=== PATIENT | female | born 1985 | race American Indian/Alaskan Native ===

== ENCOUNTER 2018-01-13 22:14 | Inpatient (IN) | payer OTHER ==
[2018-01-13 22:22] VITALS: O2SAT 100
--- NOTE | 2018-01-13 23:17 | ED PDOC ---
HPI: Psych/Substance Abuse Time Seen by Provider: 01/13/18 22:25 Chief Complaint (Nursing): Psychiatric Evaluation Chief Complaint (Provider): Psychiatric Evaluation ED Caveat: Acuity of Condition History Per: EMS History/Exam Limitations: other (patient internally preoccupied) Onset/Duration Of Symptoms: Hrs Current Symptoms Are (Timing): Still Present Associated Symptoms: Depression, Suicidal Thoughts Additional Complaint(s): Lilly Freire is a 32 year old female with a past medical history of depression, who was brought to the ED by EMS for psychiatric evaluation. Patient admits to suicidal ideation and appears delusional and religiously preoccupied upon arrival to the ED. Due to patient's clinical presentation, no further history was obtainable. PMD: none provided Past Medical History Reviewed: Historical Data, Nursing Documentation, Vital Signs, Unable To Obtain Vital Signs: Last Vital Signs Temp 98.6 F 01/13/18 22:18 Pulse 96 H 01/13/18 22:18 Resp 18 01/13/18 22:18 BP 126/74 01/13/18 22:18 Pulse Ox 100 01/13/18 22:18 - Medical History PMH: Depression - Family History Family History: States: No Known Family Hx - Allergies Allergies/Adverse Reactions: Allergies Allergy/AdvReac Type Severity Reaction Status Date / Time acetaminophen [From Tylenol] Allergy SWELLING Verified 01/14/18 04:49 crab Allergy RASH Verified 01/14/18 05:07 ibuprofen [From Motrin] Allergy SWELLING Verified 01/14/18 04:49 unsure Allergy RASH Uncoded 01/13/18 22:18 Review of Systems ROS Statement: Except As Marked, All Systems Reviewed And Found Negative Review Of Systems: ROS cannot be obtained secondary to pt's inabilty to answer questions. Physical Exam - Reviewed Nursing Documentation Reviewed: Yes Vital Signs Reviewed: Yes - Physical Exam Appears: Positive for: Non-toxic, No Acute Distress (but patient appears internally preoccupied) Head Exam: Positive for: ATRAUMATIC, NORMAL INSPECTION, NORMOCEPHALIC Skin: Positive for: Normal Color, Warm, DRY Eye Exam: Positive for: EOMI, Normal appearance, PERRL ENT: Positive for: Normal ENT Inspection Neck: Positive for: Normal, Painless ROM Cardiovascular/Chest: Positive for: Regular Rate, Rhythm. Negative for: Murmur Respiratory: Positive for: Normal Breath Sounds. Negative for: Respiratory Distress Gastrointestinal/Abdominal: Positive for: Normal Exam, Soft. Negative for: Tenderness Back: Positive for: Normal Inspection. Negative for: L CVA Tenderness, R CVA Tenderness, Vertebral Tenderness Extremity: Positive for: Normal ROM. Negative for: Deformity, Swelling Neurologic/Psych: Positive for: Alert, Oriented. Negative for: Motor/Sensory Deficits - Laboratory Results Result Diagrams: 01/14/18 02:09 01/14/18 02:09 - ECG O2 Sat by Pulse Oximetry: 100 (RA) Pulse Ox Interpretation: Normal Medical Decision Making Medical Decision Making: Time: 22: 26 Impression: 32 year old female brought in for crisis evaluation, suicidal ideation, and delusional thoughts Plan: --Urine Drug Screen --Crisis Evaluation --ED Urine --ED Urine Dipstick --1:1 Observation --Urinalysis 1:32 Patient was evaluated by crisis and will be admitted for further treatment of schizophrenia. Upon provider evaluation, she is medically stable and clear for psychiatric admission. Scribe Attestation: Documented by Carmelina Morris, acting as a scribe for Beau Harman MD. Provider Scribe Attestation: All medical record entries made by the Scribe were at my direction and personally dictated by me. I have reviewed the chart and agree that the record accurately reflects my personal performance of the history, physical exam, medical decision making, and the department course for this patient. I have also personally directed, reviewed, and agree with the discharge instructions and disposition. Disposition - Clinical Impression Clinical Impression: Schizophrenia - Patient ED Disposition Is Patient to be Admitted: Yes - Disposition Disposition Time: 01:35 Condition: STABLE - Pt Status Changed To: Hospital Disposition Of: Inpatient - Admit Certification Admit to Inpatient:: After my assessment, the patient will require hospitalization for at least two midnights. This is because of the severity of symptoms shown, intensity of services needed, and/or the medical risk in this patient being treated as an outpatient. - POA Present On Arrival: None
[2018-01-14 00:42] LABS: SQUAMOUS EPITHIAL 1 /hpf (0-5); URINE BACTERIA MOD (<OCC); URINE BILIRUBIN NEGATIVE (NEGATIVE); URINE BLOOD NEGATIVE (NEGATIVE); URINE CLARITY SLIGHTY-CLOUDY (Clear); URINE COLOR YELLOW (YELLOW); URINE GLUCOSE (UA) NEG (Normal); URINE HYALINE CAST 0-2 /hpf (0-2); URINE LEUKOCYTE ESTERASE NEG Leu/uL (Negative); URINE PROTEIN 100 mg/dL (NEGATIVE)
[2018-01-14 01:07] LABS: BARBITURATES, UR NEGATIVE (NEGATIVE); BENZODIAZEPINES, UR NEGATIVE (NEGATIVE); OPIATES, UR NEGATIVE (NEGATIVE); PHENCYCLIDINE, UR NEGATIVE (NEGATIVE)
[2018-01-14 02:19] LABS: EOS % 0.3 % (0.0-4.0); HEMOGLOBIN 10.9 g/dL (12.0-16.0); LYMPH # 1.3 K/uL (1.0-4.3); LYMPH % 33.2 % (20.0-40.0); MEAN CELL VOLUME 82.8 fl (81.0-99.0); MEAN CORPUSCULAR HEMOGLOBIN 27.6 pg (27.0-31.0); MEAN CORPUSCULAR HGB CONC 33.3 g/dL (33.0-37.0); MEAN PLATELET VOLUME 7.3 fl (7.2-11.7); MONO # 0.3 K/uL (0.0-0.8); MONO % 8.7 % (0.0-10.0); NEUT # 2.3 K/uL (1.8-7.0); NEUT % 56.8 % (50.0-75.0); RBC 3.95 Mil/uL (3.80-5.20); RED CELL DISTRIBUTION WIDTH 13.6 % (11.5-14.5)
[2018-01-14 02:31] LABS: ALB/GLOB RATIO 1.3 (1.0-2.1); ALBUMIN 4.2 g/dL (3.5-5.0); ALT/SGPT 36 U/L (9-52); AST/SGOT 80 U/L (14-36); BLOOD UREA NITROGEN 13 mg/dl (7-17); CALCIUM 9.5 mg/dL (8.4-10.2); GFR NON-AFRICAN AMERICAN > 60
[2018-01-14] MEDS ORDERED: Alum-Mag Hydrox-Simethicone Susp (30 mL) PO PRN (04:16)
[2018-01-14] MEDS ORDERED: DiphenhydrAMINE 50 mg/ml Inj IM PRN (04:16)
[2018-01-14] MEDS ORDERED: Magnesium Hydroxide Susp 30 ml UD PO PRN (04:16)
--- NOTE | 2018-01-14 04:36 | PCM.BM ---
Treatment Plan Problems - Problems identified on initial assessmt delusions Date Initiated: 01/14/18 Time Initiated: 04:36 Assessment reference: NA Status: Active Altered sleep patterns Date Initiated: 01/14/18 (t) Time Initiated: 04:41 Assessment reference: NA Status: Active Treatment assets and liabiliti Patient Assests: ADL independent, physically healthy, good support system, negotiates basic needs Patient Liabilities: substance abuse - Milieu Protocol Maintain good personal hygiene: daily Encourage regular showers, daily Remind patient to perform daily oral care, other Assist patient to perform ADL's (prn) Conduct patient checks and document Observation sheet: Q15 minutes Maintain personal safety: every shift Educate patient to report safety concerns to staff, every shift Monitor environment for contraband/sharps Medication safety: Monitor for expected outcome, potential side effects: every shift, Assess barriers to learning: every shift, Assess readiness for medication education: every shift
--- NOTE | 2018-01-14 06:11 | CARD ---
APPROVED REPORT Date of service: 01/14/2018 EKG Measurement Heart [id number] <Conclusion> Normal sinus rhythm Normal ECG
--- NOTE | 2018-01-14 09:06 | RAD ---
Date of service: 01/14/2018 HISTORY: admit COMPARISON: No prior. FINDINGS: LUNGS: No active pulmonary disease. PLEURA: No significant pleural effusion identified, no pneumothorax apparent. CARDIOVASCULAR: Normal. OSSEOUS STRUCTURES: No significant abnormalities. VISUALIZED UPPER ABDOMEN: Normal. OTHER FINDINGS: None. IMPRESSION: No active disease.
[2018-01-14 11:38] LABS: T4 7.44 ug/dl (5.5-11.0)
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
--- NOTE | 2018-01-14 16:31 | PCM.BM ---
Treatment Plan Problems - Problems identified on initial assessmt delusions Date Initiated: 01/14/18 Time Initiated: 04:36 Assessment reference: NA Status: Active Altered sleep patterns Date Initiated: 01/14/18 (t) Time Initiated: 04:41 Assessment reference: NA Status: Active Anger, Agression and Violent Behaviors Date Initiated: 01/14/18 Time Initiated: 16:31 Assessment reference: NA Status: Active Treatment assets and liabiliti Patient Assests: ADL independent, physically healthy, good support system, negotiates basic needs Patient Liabilities: substance abuse - Milieu Protocol Maintain good personal hygiene: daily Encourage regular showers, daily Remind patient to perform daily oral care, other Assist patient to perform ADL's (prn) Conduct patient checks and document Observation sheet: Q15 minutes Maintain personal safety: every shift Educate patient to report safety concerns to staff, every shift Monitor environment for contraband/sharps Medication safety: Monitor for expected outcome, potential side effects: every shift, Assess barriers to learning: every shift, Assess readiness for medication education: every shift Milieu Narrative: start haldol 5mg tid continue 1:1 precautions for safety of self and others pt at current mental status floridly psychotic having homicidal command hallucinations , no insight into illness refusing medications physically aggressive towards other patients pt needs to be screened for involuntary admission as she is currently danger to self and others and needs higher level of care Discharge/Continuing Care - Treatment Team Participation Patient/Family/SO Statement: start haldol 5mg tid continue 1:1 precautions for safety of self and others pt at current mental status floridly psychotic having homicidal command hallucinations , no insight into illness refusing medications physically aggressive towards other patients pt needs to be screened for involuntary admission as she is currently danger to self and others and needs higher level of care
--- NOTE | 2018-01-14 23:05 | CP.PCM.CON ---
History of Present Illness - History of Present Illness History of Present Illness: Attending: Dr Bolton Reason for consult: Medical matters The Patient was seen and examined in the Psych Unit HPI: The patient is answering in monosyllable. The history is obtained from the medical staff and after review of the medical records. this is a 32 years old female non compliant with medication, has hx of Schizophrenia. She was brought to the ED because of suicidal ideation, audible hallucination and becoming aggressive. she refers mild dizziness, no headache, nausea, vomits, chest pain nor coughing. PMH: Schizophrenia; Depression PSH: No Surgical hx SH: Unknown if ever smoked; No illegal drug use; No Alcohol FH: States: No known family hx Allergies: Acetaminophen, Ibuprofen Crabs Medication: Denies Review of Systems - Constitutional Constitutional: absent: Chills, Fever - EENT Eyes: absent: Blurred Vision, Diplopia, Floaters, Requires Corrective Lenses Ears: absent: Decreased Hearing, Tinnitus Nose/Mouth/Throat: absent: Epistaxis, Nasal Congestion - Cardiovascular Cardiovascular: absent: Chest Pain, Dyspnea, Edema - Respiratory Respiratory: absent: Dyspnea, Snoring - Gastrointestinal Gastrointestinal: absent: Diarrhea, Nausea, Vomiting - Genitourinary Genitourinary: absent: Dysuria, Flank Pain - Musculoskeletal Musculoskeletal: absent: Back Pain, Muscle Cramps, Muscle Weakness - Integumentary Integumentary: absent: Pruritus, Rash, Skin Ulcer, Sores, Striae, Swelling - Neurological Neurological: Dizziness. absent: Focal Weakness, Headaches - Psychiatric Psychiatric: Auditory Hallucinations, Depression - Endocrine Endocrine: absent: Palpitations, Polydipsia, Polyphagia, Polyuria - Hematologic/Lymphatic Hematologic: absent: Easy Bleeding, Easy Bruising Past Patient History - Past Medical History & Family History Past Medical History?: No - Past Social History Smoking Status: Unknown If Ever Smoked Chewing Tobacco Use: No Cigar Use: No Alcohol: None Drugs: Denies - CARDIAC Hx Cardiac Disorders: No Hx Hypertension: No - PULMONARY Hx Respiratory Disorders: No Hx Tuberculosis: No - NEUROLOGICAL HX Cerebrovascular Accident: No Hx Seizures: No - HEENT Hx HEENT Problems: No - RENAL Hx Chronic Kidney Disease: No - HEMATOLOGICAL/ONCOLOGICAL Hx Cancer: No Hx Human Immunodeficiency Virus (HIV): No - INTEGUMENTARY Hx Dermatological Problems: No - MUSCULOSKELETAL/RHEUMATOLOGICAL Hx Musculoskeletal Disorders: No - GASTROINTESTINAL Hx Gastrointestinal Disorders: No - GENITOURINARY/GYNECOLOGICAL Hx Genitourinary Disorders: No Hx Sexually Transmitted Disorders: No - PSYCHIATRIC Hx Depression: Yes - SURGICAL HISTORY Hx Surgeries: No - ANESTHESIA Hx Anesthesia: No Meds Allergies/Adverse Reactions: Allergies Allergy/AdvReac Type Severity Reaction Status Date / Time acetaminophen [From Tylenol] Allergy SWELLING Verified 01/14/18 04:49 crab Allergy RASH Verified 01/14/18 05:07 ibuprofen [From Motrin] Allergy SWELLING Verified 01/14/18 04:49 unsure Allergy RASH Uncoded 01/13/18 22:18 - Medications Medications: Current Medications Al Hydrox/Mg Hydrox/Simethicone (Maalox Plus 30 Ml) 30 ml PO Q4 PRN PRN Reason: Dyspepsia Benztropine Mesylate (Cogentin) 1 mg PO TID [facility] Last Admin: 01/14/18 13:00 Dose: Not Given Diphenhydramine HCl (Benadryl) 50 mg IM Q6 PRN PRN Reason: Extrapyramidal S/S Unable PO Last Admin: 01/14/18 08:21 Dose: 50 mg Diphenhydramine HCl (Benadryl) 50 mg PO Q6 PRN PRN Reason: Extrapyramidal Symptoms Diphenhydramine HCl (Benadryl) 50 mg PO HS PRN PRN Reason: Sleep Haloperidol (Haldol) 5 mg PO Q6 PRN PRN Reason: Agitation Haloperidol (Haldol) 5 mg PO TID [facility] Last Admin: 01/14/18 13:00 Dose: Not Given Haloperidol Lactate (Haldol) 5 mg IM Q6 PRN PRN Reason: Agitation Lorazepam (Ativan) 2 mg IM Q6 PRN PRN Reason: Anxiety Lorazepam (Ativan) 2 mg PO Q6 PRN PRN Reason: Anxiety Magnesium Hydroxide (Milk Of Magnesia) 30 ml PO HS PRN PRN Reason: Constipation Physical Exam - Constitutional Appears: No Acute Distress - Head Exam Head Exam: ATRAUMATIC, NORMAL INSPECTION, NORMOCEPHALIC - Eye Exam Eye Exam: EOMI, Normal appearance Pupil Exam: NORMAL ACCOMODATION, PERRL - ENT Exam ENT Exam: Mucous Membranes Moist, Normal Exam, Normal External Ear Exam - Neck Exam Neck exam: Positive for: Full Rom, Normal Inspection. Negative for: Lymphadenopathy, Tenderness - Respiratory Exam Respiratory Exam: Clear to Auscultation Bilateral. absent: Rales, Rhonchi, Wheezes - Cardiovascular Exam Cardiovascular Exam: REGULAR RHYTHM, RRR, +S1, +S2 - GI/Abdominal Exam GI & Abdominal Exam: Normal Bowel Sounds, Soft. absent: Mass, Organomegaly, Tenderness - Rectal Exam Rectal Exam: Deferred - Extremities Exam Extremities exam: Positive for: full ROM, normal inspection. Negative for: calf tenderness, joint swelling, pedal edema - Back Exam Back exam: NORMAL INSPECTION. absent: CVA tenderness (L), CVA tenderness (R) - Neurological Exam Neurological exam: Alert, CN II-XII Intact, Oriented x3, Reflexes Normal - Psychiatric Exam Psychiatric exam: Normal Affect, Normal Mood - Skin Skin Exam: Dry, Intact, Normal Color, Warm Results - Vital Signs Recent Vital Signs: Last Vital Signs Temp 98.2 F 01/14/18 09:26 Pulse 82 01/14/18 09:26 Resp 20 01/14/18 09:26 BP 121/73 01/14/18 09:26 Pulse Ox 100 01/14/18 06:49 - Labs Result Diagrams: 01/14/18 02:09 01/14/18 02:09 Labs: Laboratory Results - last 24 hr 01/14/18 01/14/18 01/14/18 00:30 00:30 02:09 WBC RBC Hgb Hct MCV MCH MCHC RDW Plt Count MPV Neut % (Auto) Lymph % (Auto) Saline % (Auto) Eos % (Auto) Baso % (Auto) Neut # (Auto) Lymph # (Auto) Saline # (Auto) Eos # (Auto) Baso # (Auto) Sodium 138 Potassium 3.4 L Chloride 104 Carbon Dioxide 20 L Anion Gap 17 BUN 13 Creatinine 0.7 Est GFR ( Amer) > 60 Est GFR (Non-Af Amer) > 60 Random Glucose 107 H Hemoglobin A1c Calcium 9.5 Total Bilirubin 0.9 AST 80 H ALT 36 Alkaline Phosphatase 43 Total Protein 7.6 Albumin 4.2 Globulin 3.3 Albumin/Globulin Ratio 1.3 Triglycerides Cholesterol LDL Cholesterol Direct HDL Cholesterol Thyroxine (T4) Urine Color Yellow Urine Clarity Slighty-cloudy Urine pH 6.0 Ur Specific [place] 1.031 H Urine Protein 100 Urine Glucose (UA) Neg Urine Ketones 80 Urine Blood Negative Urine Nitrate Negative Urine Bilirubin Negative Urine Urobilinogen 2.0 H Ur Leukocyte Esterase Neg Urine RBC (Auto) 3 Urine Microscopic WBC 4 Ur Squamous Epith Cells 1 Urine Bacteria Mod H Hyaline Casts 0-2 Urine Opiates Screen Negative Urine Methadone Screen Negative Ur Barbiturates Screen Negative Ur Phencyclidine Scrn Negative Ur Amphetamines Screen Negative U Benzodiazepines Scrn Negative U Oth Cocaine Metabols Negative U Cannabinoids Screen Positive H Alcohol, Quantitative < 10 01/14/18 01/14/18 01/14/18 02:09 11:12 11:12 WBC 4.0 L RBC 3.95 Hgb 10.9 L Hct 32.7 L MCV 82.8 MCH 27.6 MCHC 33.3 RDW 13.6 Plt Count 200 MPV 7.3 Neut % (Auto) 56.8 Lymph % (Auto) 33.2 Saline % (Auto) 8.7 Eos % (Auto) 0.3 Baso % (Auto) 1.0 Neut # (Auto) 2.3 Lymph # (Auto) 1.3 Saline # (Auto) 0.3 Eos # (Auto) 0.0 Baso # (Auto) 0.0 Sodium Potassium Chloride Carbon Dioxide Anion Gap BUN Creatinine Est GFR ( Amer) Est GFR (Non-Af Amer) Random Glucose Hemoglobin A1c 5.2 Calcium Total Bilirubin AST ALT Alkaline Phosphatase Total Protein Albumin Globulin Albumin/Globulin Ratio Triglycerides 78 Cholesterol 203 H LDL Cholesterol Direct 97 HDL Cholesterol 73 H Thyroxine (T4) 7.44 Urine Color Urine Clarity Urine pH Ur Specific [place] Urine Protein Urine Glucose (UA) Urine Ketones Urine Blood Urine Nitrate Urine Bilirubin Urine Urobilinogen Ur Leukocyte Esterase Urine RBC (Auto) Urine Microscopic WBC Ur Squamous Epith Cells Urine Bacteria Hyaline Casts Urine Opiates Screen Urine Methadone Screen Ur Barbiturates Screen Ur Phencyclidine Scrn Ur Amphetamines Screen U Benzodiazepines Scrn U Oth Cocaine Metabols U Cannabinoids Screen Alcohol, Quantitative - EKG Data EKG comments: NSR 73/min - Imaging and Cardiology Chest x-ray Status: Image reviewed by me, Report reviewed by me Additional comment: No Active disease Assessment & Plan - Assessment and Plan (Free Text) Assessment: #. chizophrenia #. Suicidal thoughts #. Hypookalemia Plan: 32 years old female non compliant with medication, has hx of Schizophrenia, brought to the ED because of suicidal ideation, audible hallucination and becoming aggressive. #. Schizophrenia with Suicide Ideation - Psychiatric management #. Hypookalemia - pPtassium Chloride 20mEq - Follow Electrolytes #. Code Status: Full - Date & Time Date: 01/14/18 Time: 23:05
[2018-01-15] MEDS ORDERED: Potassium Chloride 20 mEq ER Tab PO ONE (00:17)
[2018-01-15 04:00] VITALS: BP 131/83; PULSE 93; RESP 18; TEMP 97.9
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
== END 2018-01-15 17:22 | DRG 430 ==
LOC: EDBD 22:14 → H.ER 22:14 → H.ERHOLD 01-14 01:25 → H.PSYCH 01-14 04:13
PROVIDERS: ADMIT Psychiatry & Neurology Psychiatry; ATTEND Psychiatry & Neurology Psychiatry
PROC: GZHZZZZ Group Psychotherapy (ICD-10-PCS; principal; 2018-01-14)
DX: F25.9 Schizoaffective disorder, unspecified (principal); E87.6 Hypokalemia; F12.159 Cannabis abuse with psychotic disorder, unspecified; R45.851 Suicidal ideations; Z91.14 Patient's other noncompliance with medication regimen; Z91.19 Patient's noncompliance with other medical treatment and regimen; Z88.6 Allergy status to analgesic agent; Z91.013 Allergy to seafood